=== PATIENT | male | born 1975 | race Caucasian/White ===

== ENCOUNTER 2017-10-01 06:45 | Day surgery (SDC) | payer OTHER ==
[~2017-10-01] VITALS: Ht 182.9 cm; Wt 98.1 kg
[2017-10-01] MEDS ORDERED: EPINEPHRINE 1 MG/ML, 1ML ONE (07:09)
[2017-10-01] MEDS ORDERED: BUPIVACAINE/PF 0.5% ONE (07:09)
[2017-10-01] MEDS ORDERED: LACTATED RINGERS 1,000 ML IV SCH (07:13)
[2017-10-01] MEDS ORDERED: NONE PER PT (07:30)
[2017-10-01 07:31] VITALS: BP 123/82
[2017-10-01] MEDS ORDERED: MIDAZOLAM 1 MG/ML, 2ML ONE (07:57)
[2017-10-01] MEDS ORDERED: FENTANYL PF 250 MCG/5ML ONE (07:57)
[2017-10-01] MEDS ORDERED: PROPOFOL 10 MG/ML, 20ML ONE (07:59)
[2017-10-01] MEDS ORDERED: ROCURONIUM 10MG/ML,5ML ONE (08:00)
[2017-10-01] MEDS ORDERED: SCOPOLAMINE PATCH, 1.5MG PATCH.TD72 TD ONE (08:00)
[2017-10-01] MEDS ORDERED: GLYCOPYRROLATE 0.4 MG/2 ML, 2ML ONE (08:00)
[2017-10-01] MEDS ORDERED: ONDANSETRON 2MG/ML, 2ML IVPush ONE (08:00)
[2017-10-01] MEDS ORDERED: ACETAMINOPHEN 500 MG TABLET PO ONE (08:00)
[2017-10-01] MEDS ORDERED: GABAPENTIN 300 MG CAPSULE PO ONE (08:00)
[2017-10-01] MEDS ORDERED: NEOSTIGMINE 1 MG/ML, 10ML ONE (08:00)
[2017-10-01] MEDS ORDERED: CEFOTETAN PMX 2GM/50ML 50 ML ONE (08:01)
[2017-10-01] MEDS ORDERED: MEPERIDINE/PF 25MG/0.5ML IVPush PRN (08:30)
[2017-10-01] MEDS ORDERED: ONDANSETRON ODT 8 MG PO ONE (08:30)
[2017-10-01] MEDS ORDERED: PROMETHAZINE 12.5 MG SUPP PR PRN (08:30)
[2017-10-01] MEDS ORDERED: PROMETHAZINE 25 MG SUPP PR PRN (08:30)
[2017-10-01] MEDS ORDERED: LABETALOL 5MG/ML, 20ML IV PRN (08:30)
[2017-10-01] MEDS ORDERED: hydrALAzine 20 MG/ML, 1ML IV PRN (08:30)
[2017-10-01] MEDS ORDERED: PROMETHAZINE 25 MG/ML, 1ML IV PRN (08:30)
[2017-10-01] MEDS ORDERED: ONDANSETRON ODT 8 MG PO PRN (08:30)
[2017-10-01] MEDS ORDERED: OXYcodone 5 MG/5 ML ORAL.SOL UDC PO PRN (08:30)
[2017-10-01] MEDS ORDERED: HYDROmorphone 1 MG/ML, 1ML IV PRN (08:30)
[2017-10-01] MEDS ORDERED: FENTANYL PF 100 MCG/2ML ONE (09:40)
[2017-10-01] MEDS ORDERED: MORPHINE SULFATE 4 MG/ML, 1ML ONE (09:41)
[2017-10-01] MEDS ORDERED: OXYcodone 5 MG/5 ML ORAL.SOL UDC ONE (09:41)
[2017-10-01] MEDS: MORPHINE SULFATE 4 MG/ML, 1ML IVPush PRN ×2 (09:45→09:57)
[2017-10-01] MEDS: FENTANYL PF 100 MCG/2ML IV PRN ×2 (10:04→10:15)
[2017-10-01] MEDS ORDERED: HYDROcodone/APAP 5/325 TABLET ONE (13:42)
== END 2017-10-01 14:00 | disposition home or self-care (01) ==
LOC: OUT 06:45
PROVIDERS: ATTEND Surgery
DX: K81.1 Chronic cholecystitis (principal); K82.8 Other specified diseases of gallbladder; K42.9 Umbilical hernia without obstruction or gangrene; K21.9 Gastro-esophageal reflux disease without esophagitis; G47.33 Obstructive sleep apnea (adult) (pediatric)
CPT/HCPCS: 47562; 88304; J0171; J2250; J2704; J2710; J3010; J3490; J7120; Q0162; S0074